=== PATIENT | male | born 1955 | race Caucasian/White ===

== ENCOUNTER → 2020-12-11 | Outpatient (CLI) | payer MEDICARE ==
[~2020-12-11] MED LIST: ALBUTEROL INH; ASPIRIN EC81 MG PO; CRESTOR20 MG PO; CYCLOBENZAPRINE10 MG PO; ESCITALOPRAM OX10 MG PO; GLIPIZIDE10 MG PO; HYDROXYZINE HCL25 MG PO; LISINOPRIL5 MG PO; METFORMIN HCL1000 MG PO; METOPROLOL TART25 MG PO; NAPROXEN500 MG PO; OMEGA 3 PO; SOLIQUA 100 UNIT3 ML SQ; SPIRIVA INH
== END ==
LOC: EXRD 09:17
DX: Z13.6 Encounter for screening for cardiovascular disorders (principal)
CPT/HCPCS: 76706

== ENCOUNTER → 2020-12-31 | Day surgery (SDC) | payer MEDICARE, OTHER | END | disposition home or self-care (01) | LOC: OR 06:13 | PROVIDERS: Surgery | PROC: 0DBP8ZX Excision of Rectum, Via Natural or Artificial Opening Endoscopic, Diagnostic (ICD-10-PCS; 2020-12-31) | PROC: 0DB78ZX Excision of Stomach, Pylorus, Via Natural or Artificial Opening Endoscopic, Diagnostic (ICD-10-PCS; principal; 2020-12-31 07:30) | PROC: 0DB38ZX Excision of Lower Esophagus, Via Natural or Artificial Opening Endoscopic, Diagnostic (ICD-10-PCS; 2020-12-31 07:30) | DX: K20.90 Esophagitis, unspecified without bleeding (principal); D12.8 Benign neoplasm of rectum; D64.9 Anemia, unspecified; K64.4 Residual hemorrhoidal skin tags; K29.50 Unspecified chronic gastritis without bleeding; I10 Essential (primary) hypertension; J44.9 Chronic obstructive pulmonary disease, unspecified; E78.5 Hyperlipidemia, unspecified; N40.1 Benign prostatic hyperplasia with lower urinary tract symptoms; R35.1 Nocturia; E11.42 Type 2 diabetes mellitus with diabetic polyneuropathy; M15.9 Polyosteoarthritis, unspecified; E55.9 Vitamin D deficiency, unspecified; F17.200 Nicotine dependence, unspecified, uncomplicated; Z79.82 Long term (current) use of aspirin; Z79.84 Long term (current) use of oral hypoglycemic drugs; Z79.899 Other long term (current) drug therapy | CPT/HCPCS: 82962; 88342; J2001; J2704; J7120 ==